=== PATIENT | female | born 1975 | race Caucasian/White ===

== ENCOUNTER 2018-02-21 22:00 | Emergency (ER) | payer MEDICAID, OTHER ==
[~2018-02-21] VITALS: Ht 152.4 cm; Wt 84.8 kg
[2018-02-21 22:09] VITALS: BP 171/111
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
[2018-02-21] MEDS ORDERED: SILVER SULFADIAZINE CREAM 25 GM TUBE TP ONE (23:30)
[2018-02-21] MEDS ORDERED: SILVER SULFADIAZINE CREAM 25 GM TUBE ONE (23:53)
== END 2018-02-21 23:58 | disposition home or self-care (01) ==
LOC: ER 22:00
DX: T23.222A Burn of second degree of single left finger (nail) except thumb, initial encounter (principal); T22.211A Burn of second degree of right forearm, initial encounter; L03.114 Cellulitis of left upper limb; I10 Essential (primary) hypertension; X10.1XXA Contact with hot food, initial encounter; Y93.89 Activity, other specified; Y92.89 Other specified places as the place of occurrence of the external cause; Y99.8 Other external cause status
CPT/HCPCS: A4606; Z7610